=== PATIENT | male | born 1965 | race Caucasian/White ===

== ENCOUNTER 2017-05-19 17:57 | Emergency (ER) | payer MEDICAID ==
[~2017-05-19] VITALS: Ht 162.6 cm; Wt 76.4 kg
[2017-05-19 18:09] VITALS: Ht 162.6 cm; Wt 76.4 kg
[2017-05-19 19:22] LABS: BASOPHIL % 0.1 % (0-2); PLATELET COUNT 141 x10^3mcL (130-400)
[2017-05-19 19:27] LABS: CALCIUM 8.6 mg/dL (8.5-10.1); CARBON DIOXIDE 28.1 mmol/L (21-32); CHLORIDE SERUM 95 mmol/L (98-107); CREATININE SERUM 1.1 mg/dL (0.7-1.3); GFR1 > 60 mL/min; GLUCOSE SERUM 153 mg/dL (74-106); POTASSIUM SERUM 3.7 mmol/L (3.5-5.1); SODIUM SERUM 132 mmol/L (136-145)
[2017-05-19 19:38] LABS: ALKALINE PHOSPHATASE 79 U/L (46-116); ALT/SGPT 39 U/L (16-63); AST/SGOT 30 U/L (15-37); BILIRUBIN TOTAL 0.44 mg/dL (0.20-1.00); LIPASE 101 IU/L (73-393); TOTAL PROTEIN, SERUM 7.7 g/dL (6.4-8.2)
[2017-05-19 19:39] LABS: ALBUMIN 3.3 g/dL (3.4-5.0)
[2017-05-19 20:12] LABS: CK-MB < 0.5 ng/mL (0-3.6); CREATINE KINASE 80 U/L (39-308)
[2017-05-19 21:36] VITALS: BP 131/74
== END 2017-05-19 21:36 | disposition home or self-care (01) ==
LOC: ED 17:57
PROVIDERS: Emergency Medicine
DX: J20.9 Acute bronchitis, unspecified (principal); R10.9 Unspecified abdominal pain
CPT/HCPCS: 36415; 83880; J1885; Q0092

== ENCOUNTER 2017-09-09 11:40 | Emergency (ER) | payer MEDICAID ==
[~2017-09-09] VITALS: Ht 170.2 cm; Wt 70.8 kg
[2017-09-09 11:45] VITALS: Ht 170.2 cm; Wt 70.8 kg
[2017-09-09 12:34] LABS: CALCIUM 8.2 mg/dL (8.5-10.1); CARBON DIOXIDE 26.6 mmol/L (21-32); CHLORIDE SERUM 101 mmol/L (98-107); CREATININE SERUM 0.9 mg/dL (0.7-1.3); GFR1 > 60 mL/min; GLUCOSE SERUM 100 mg/dL (74-106); POTASSIUM SERUM 3.9 mmol/L (3.5-5.1); SODIUM SERUM 139 mmol/L (136-145)
[2017-09-09 12:39] LABS: ALBUMIN 4.1 g/dL (3.4-5.0); ALKALINE PHOSPHATASE 80 U/L (46-116); ALT/SGPT 97 U/L (16-63); AST/SGOT 116 U/L (15-37); BILIRUBIN TOTAL 0.48 mg/dL (0.20-1.00); MAGNESIUM 2.3 mg/dL (1.8-2.4); TOTAL PROTEIN, SERUM 8.2 g/dL (6.4-8.2)
[2017-09-09 12:45] LABS: BASOPHIL % 0.9 % (0-2); PLATELET COUNT 175 x10^3mcL (130-400); RED CELL DISTRIBUTION WIDTH 14.2 % (11.5-14.5)
[2017-09-09 15:42] VITALS: BP 187/109
== END 2017-09-09 15:42 | disposition home or self-care (01) ==
LOC: ED 11:40
PROVIDERS: Emergency Medicine
DX: E83.51 Hypocalcemia (principal); F10.129 Alcohol abuse with intoxication, unspecified; I10 Essential (primary) hypertension
CPT/HCPCS: G0480; J2060; J3490